=== PATIENT | male | born 1995 | race Hispanic/Latino ===

== ENCOUNTER 2017-01-22 12:51 | Emergency (ER) | payer OTHER ==
[~2017-01-22] VITALS: Ht 180.3 cm; Wt 115.7 kg
[2017-01-22 13:00] VITALS: BP 108/70
--- NOTE | 2017-01-22 13:04 | ED ANKLE/FOOT INJURY COMPLAINT ---
History of Present Illness General Chief Complaint: Plantar Puncture Wound Stated Complaint: RIGHT FOOT PUNCTURE WOUND BY NAIL Source: patient, old records Exam Limitations: no limitations Vital Signs & Intake/Output Vital Signs & Intake/Output Vital Signs Date Time Temp Pulse Resp B/P B/P Pulse O2 O2 Flow FiO2 Mean Ox Delivery Rate 01/22 1300 97.1 99 16 108/70 99 Room Air Allergies Coded Allergies: shrimp (Severe, ANAPHYLAXIS 01/22/17) Triage Note: PT STATES THAT HE STEPPED ON A NAIL AND IT WENT THROUGH HIS RUBBER SOLED SANDALS ON. STATES THAT HE HAS A SMALL PUNCTURE WOUND, UNSURE OF TETANUS STATUS. REFUSES MEDS AT TRIAGE Triage Nurses Notes Reviewed? yes Occurred: just prior to arrival Duration: hour(s): (1), constant Timing: single episode today Severity: mild Severity Numbers: 2 Pain/Injury Location: Right: 1st toe. Method of Injury: puncture No Modifying Factors: none Associated Symptoms: none HPI: 21-year-old male with no medical history presents to ER for evaluation status post sustaining a puncture wound to the right first toe when he was walking outside with his sandals. He states that a nail punctured through the sandal and hit his toe.. The nail did not stay within his toe he is now complaining of mild aching pain is not taken anything for his pain is declining anything when offered his last tetanus is unknown. There is no other injury no difficulty with weightbearing (DANII HARMON) Past History Travel History Traveled to [place] past 21 day No Medical History Any Pertinent Medical History? none Neurological: NONE EENT: NONE Cardiovascular: NONE Respiratory: NONE Gastrointestinal: NONE Hepatic: NONE Renal: NONE Musculoskeletal: NONE Psychiatric: NONE Endocrine: NONE Blood Disorders: NONE Cancer(s): NONE SUPERVISOR AREA/Reproductive: NONE Surgical History Surgical History: non-contributory Psychosocial History What is your primary language Maltese Tobacco Use: Never used ETOH Use: denies use Illicit Drug Use: denies illicit drug use Family History Hx Contributory? No (DANII HARMON) Review of Systems Review of Systems Constitutional: Reports: see HPI. All Other Systems: Reviewed and Negative Comments Review of systems: See HPI, All other systems negative. Constitutional, no chills no fever, no malaise HEENT: No visual changes no sore throat no congestion Cardiovascular: No chest pain , no palpitation Skin: no rashes, no change in skin Respiratory: No dyspnea no cough GI: No nausea no vomiting, Muscle skeletal: No joint pain, no joint swelling, no back pain, no neck pain, Neurologic: no headache Heme/endocrine: No bruising Immunology: No lymphadenopathy (DANII HARMON) Physical Exam Physical Exam General Appearance: well developed/nourished, no apparent distress, alert, awake Leg/Knee/Thigh Left: normal range of motion Comments: Well-developed well-nourished patient in no apparent distress. HEENT: Atraumatic, extraocular motion intact Neck: Supple, FROM Back: FROM Respiratory:No respiratory distress. Patient speaking in full complete sentences. Breath sounds clear to auscultation bilaterally: NO W/R/R upper Extremities: full range of motion Hip/Pelvis: Atraumatic/Stable. FROM. Knee: Atraumatic/stable. FROM. No joint swelling, no effusion Leg: Atraumatic. Nontender. No edema, 5 out of 5 strength in the lower extremity, normal dorsiflexion of great toe bilaterally, gross sensation is intact Ankle/Foot: Superficial puncture jayne noted to the right base plantar aspect first toe no bleeding no ecchymosis nor induration or fluctuance nontender the rest of the foot is atraumatic FROM. No swelling, no effusion. No laxity on exam Pulses: Normal/equal DP/PT pulses bilaterally. Brisk cap refill Neuro: awake, alert, and oriented to person, place and time. There were no obvious focal neurologic abnormalities. Skin: Warm & dry;No appreciable rash on exposed skin Psych: Mood affect normal, normal memory normal judgment. (DANII HARMON) Progress Differential Diagnosis: cellulitis, fracture, sprain, contusion Plan of Care: Current Medications Sig/Emmanuel Start time Last Medication Dose Stop Time Status Admin Tetanus/Diphtheria 0.5 ML ONCE ONE 01/22 1315 UNVr Toxoids Adsorbed 01/22 1316 (Decavac) Wound irrigated cleaned bacitracin sterile dressing applied tetanus IM ordered discussed the patient return precautions signs of infection to look out for he feels comfortable plan, ambulatory with steady gait upon discharge (DANII HARMON) Departure Departure Time of Disposition: 1308 Disposition: HOME OR SELF CARE Condition: Stable Clinical Impression Primary Impression: Puncture wound of foot Referrals: FARZANA SELLERS,ANTHONY Gamez (PCP/Family) Additional Instructions: Keep area clean and covered. Follow up with your primary care physician or return to ER with any concerns or signs of infection: Redness warmth swelling discharge fever or chills. Departure Forms: Customer Survey General Discharge Information (DANII HARMON) PA/ORTHOPEDIC SHOE MAKER Co-Sign Statement Statement: ED Attending supervision documentation- [] I saw and evaluated the patient. I have also reviewed all the pertinent lab results and diagnostic results. I agree with the findings and the plan of care as documented in the PA's/ORTHOPEDIC SHOE MAKER's documentation. [X] I have reviewed the ED Record and agree with the PA's/ORTHOPEDIC SHOE MAKER's documentation. [] Additions or exceptions (if any) to the PAs/ORTHOPEDIC SHOE MAKER's note and plan are summarized below: [] (LAILA SELLERS,MARGO Cabrera)
== END 2017-01-22 13:27 ==
LOC: ERH 12:51
DX: S91.331A Puncture wound without foreign body, right foot, initial encounter (principal); W45.0XXA Nail entering through skin, initial encounter; Y93.01 Activity, walking, marching and hiking; Y92.9 Unspecified place or not applicable
CPT/HCPCS: 90471; 90714